=== PATIENT | female | born 1995 | race Caucasian/White ===

== ENCOUNTER 2020-10-04 15:18 | Day surgery (SDCO) | payer OTHER ==
[~2020-10-04] VITALS: Ht 152.4 cm; Wt 66.8 kg
[2020-10-04 16:10] LABS: BASOPHIL 0.5 % (0-2); HCT 39.7 % (37.0-47.0); HGB 13.6 g/dl (12.5-16.0); LYMPHOCYTE 15.8 % (15-48); MCH 30.8 pg (25.0-31.0); MCHC 34.3 g/dL (32.0-36.0); MCV 89.8 fL (78.0-100.0); MONOCYTE 6.7 % (0-12); MPV 10.2 fL (6.0-9.5); NEUTROPHIL 74.7 % (41-80); NRBC 0; PLT 289 K/uL (150-400); RBC 4.42 M/uL (4.20-5.40); RDW 13.2 % (11.5-14.0); WBC 9.1 K/uL (4.0-10.5)
[2020-10-04 16:49] LABS: BILIRUBIN - TOTAL 0.9 mg/dL (0.2-1.0); BUN/CREAT RATIO (CALC) 11.1 RATIO; CREATININE 0.54 mg/dL (0.51-0.95); GLOBULIN (CALCULATION) 4.3 g/dL; POTASSIUM 4.3 mmol/L (3.5-5.1); TOTAL PROTEIN 8.3 g/dL (6.4-8.2)
[2020-10-04 17:25] LABS: BILIRUBIN 1+ mg/dL (NEGATIVE); BLOOD NEGATIVE Ery/uL (NEGATIVE); COLOR YELLOW (YELLOW); GLUCOSE (U) NORMAL (NORMAL); LEUKOCYTES NEGATIVE Leu/uL (NEGATIVE); NITRITE NEGATIVE (NEGATIVE); PROTEIN TRACE (LOW) mg/dL (NEGATIVE); pH 6.5 (5.0-9.0)
[2020-10-04 17:28] LABS: CLARITY SLIGHTLY HAZY (CLEAR)
[2020-10-04] MEDS ORDERED: LOPRESSOR50 MG PO (21:33)
[2020-10-04] MEDS ORDERED: ELAVIL50 MG PO (21:34)
[2020-10-04] MEDS ORDERED: ATARAX25 MG PO (21:35)
[2020-10-04] MEDS ORDERED: CHANTIX1 MG PO (21:36)
[2020-10-04] MEDS ORDERED: NORVASC5 MG PO (21:37)
--- NOTE | 2020-10-05 01:41 | NUR ---
PATIENT ARRIVED TO THE FLOOR IN PAIN AND NAUSEOUS DURING INITIAL ASSESSMENT. THE PATIENT WAS NOT YET BOOKED TO THE FLOOR SO WRITTEN ORDERS FOR ZOFRAN 4MG IV AND DILAUDID 1MG IV WERE GIVEN PER HI LYNNE APRN AT 2039 AND BOTH MEDICATIONS WERE ADMINISTERED TO THE PATIENT AT 2045. THE MEDICATIONS WERE NOT SCANNED INTO THE EMAR TIL 2150. A SUBSEQUENT DOSE WAS ADMINSTERED AT 0102 WHICH WAS 4 HOURS AND 16 MINUTES AFTER THE INITIAL DOSE. THE EMAR DOSE NOT REFLECT THIS HOWEVER, IT REFLECTS A WINDOW OF LESS THAN 4 HOURS WHICH IS INCORRECT. PAPER DOCUMENTATION OF THIS ADMINISTRATION IS WITHIN THE PATIENTS CHART WELL.
[2020-10-05 06:00] LABS: BASOPHIL 0.6 % (0-2); EOSINOPHIL 3.5 % (0-5); HCT 35.7 % (37.0-47.0); LYMPHOCYTE 36.7 % (15-48); MCH 30.8 pg (25.0-31.0); MCHC 33.6 g/dL (32.0-36.0); MCV 91.5 fL (78.0-100.0); MONOCYTE 9.2 % (0-12); MPV 10.6 fL (6.0-9.5); NEUTROPHIL 49.6 % (41-80); NRBC 0; PLT 193 K/uL (150-400); RDW 13.3 % (11.5-14.0); WBC 4.8 K/uL (4.0-10.5)
[2020-10-05 06:05] LABS: ALBUMIN 3.2 g/dL (3.4-5.0); BILIRUBIN - TOTAL 0.8 mg/dL (0.2-1.0); BUN/CREAT RATIO (CALC) 6.8 RATIO; CREATININE 0.59 mg/dL (0.51-0.95); GLOBULIN (CALCULATION) 3.4 g/dL; POTASSIUM 3.9 mmol/L (3.5-5.1); TOTAL PROTEIN 6.6 g/dL (6.4-8.2)
--- NOTE | 2020-10-05 14:06 | NUR ---
MET WITH PT AND SPOUSE. PT IS INDEPENDENT. SHE STATES THAT HER SPOUSE IS SUPPORTIVE. THE [facility] MADE HER AN APPT WITH [facility] [address] AT [facility] PHONE NUMBER IS [phone]. THE APPT IS Saturday12/24/20 @ 7:[address] YASIR HARDING. BOTH PT AND SPOUSE IN AGREEMENT WITH APPT. GAVE PT A WRITTEN COPY OF THE APPT. ADVISED DHIRAJ OCHOA OF APPT.
--- NOTE | 2020-10-05 23:45 | NUR ---
11.20 Patient tempature 100.0, HR 125 when woke up for vital signs. ASSEMBLER DC [employer] Raya Alonso informed. Tylenol 650mg given and patient will be monitored for change in tempature within an hour.
[2020-10-06 05:39] LABS: BASOPHIL 1.2 % (0-2); EOSINOPHIL 3.2 % (0-5); HCT 33.5 % (37.0-47.0); HGB 11.2 g/dl (12.5-16.0); LYMPHOCYTE 34.3 % (15-48); MCH 30.8 pg (25.0-31.0); MCHC 33.4 g/dL (32.0-36.0); MONOCYTE 11.3 % (0-12); MPV 10.3 fL (6.0-9.5); NEUTROPHIL 49.8 % (41-80); NRBC 0; PLT 197 K/uL (150-400); RBC 3.64 M/uL (4.20-5.40); RDW 13.2 % (11.5-14.0); WBC 4.3 K/uL (4.0-10.5)
[2020-10-06 06:12] LABS: ALBUMIN 3.1 g/dL (3.4-5.0); BILIRUBIN - TOTAL 0.6 mg/dL (0.2-1.0); BUN/CREAT RATIO (CALC) 4.8 RATIO; C-REACTIVE PROTEIN 5.4 mg/dL (<=0.90); CREATININE 0.62 mg/dL (0.51-0.95); GLOBULIN (CALCULATION) 3.5 g/dL; POTASSIUM 4.1 mmol/L (3.5-5.1); TOTAL PROTEIN 6.6 g/dL (6.4-8.2)
[2020-10-07] MEDS ORDERED: AZITHROMYCIN250 MG PO (09:23)
[2020-10-08 04:49] LABS: BASOPHIL 0.6 % (0-2); EOSINOPHIL 4.7 % (0-5); HCT 35.9 % (37.0-47.0); HGB 11.7 g/dl (12.5-16.0); MCH 30.3 pg (25.0-31.0); MCHC 32.6 g/dL (32.0-36.0); MONOCYTE 10.8 % (0-12); MPV 10.5 fL (6.0-9.5); NEUTROPHIL 55.7 % (41-80); NRBC 0; PLT 222 K/uL (150-400); RBC 3.86 M/uL (4.20-5.40); RDW 13.4 % (11.5-14.0); WBC 5.1 K/uL (4.0-10.5)
[2020-10-08 05:13] LABS: ALBUMIN 3.2 g/dL (3.4-5.0); BILIRUBIN - TOTAL 0.5 mg/dL (0.2-1.0); CREATININE 0.67 mg/dL (0.51-0.95); GLOBULIN (CALCULATION) 3.9 g/dL; TOTAL PROTEIN 7.1 g/dL (6.4-8.2)
--- NOTE | 2020-10-08 15:13 | NUR ---
PT DAD CAME UP TO NURSES DESK TO SPEAK TO ZABRINA HEARN. FATHER ASKED WHAT THE PLAN FOR HIS DAUGHTER WOULD BE, WHY [facility] HAS NOT TRANSFERRED HER YET, AND IF SHE WAS ABLE TO BE DISCHARGED AND MANANGED AT HOME AND THEN COULD FOLLOW UP WITH HER PRIMARY GI PHYSICIAN. LILIAM HEARN EXPLAINED THAT HER PAIN WAS BEING MANAGED WITH IV DILAUDID AND PHENERGAN AROUND THE CLOCK AND THAT RN WAS NOT SURE HOW WELL HER PAIN COULD BE MANAGED AT HOME. FATHER AGREES AND RETURNS TO ROOM OF [facility]. DR PALACIOS WAS NOTFIED AND WENT INTO ROOM TO SPEAK WITH PATIENT. PATIENT WAS REVIEWED OF OPTIONS AND DECIDED THAT SHE WOULD CONTINUE TO STAY AND WAIT HERE UNTIL [facility] ACCEPTED HER. LILIAM HEARN WENT INTO ROOM AFTER FATHER LEFT AND SPOKE WITH PATIENT REGARDING HER PLAN OF CARE. PT APOLOGIZES FOR FATHERS QUESTIONS. AND STATES THAT SHE WANTS TO STAY HERE AT [facility] UNTIL A ROOM IS AVAILABLE AT [facility]. PT WAS REASSURED THAT FATHERS QUESTIONS WERE NOT A BOTHER THAT THE STAFF WANTED TO CLARIFY SINCE SHE IS THE PATIENT IT IS HER HEALTHCARE CHOICES.
== END 2020-10-08 19:11 | disposition other institution (70) ==
LOC: FER 15:18 → FMS 19:17 → FER 20:00 → FMS 21:35
PROVIDERS: Allergy & Immunology Allergy; Emergency Medicine; Nurse Practitioner; ADMIT Internal Medicine
DX: K86.1 Other chronic pancreatitis (principal); K86.3 Pseudocyst of pancreas; I10 Essential (primary) hypertension; F17.210 Nicotine dependence, cigarettes, uncomplicated; Z79.899 Other long term (current) drug therapy; Z98.890 Other specified postprocedural states; Z20.822 Contact with and (suspected) exposure to COVID-19
CPT/HCPCS: 36415; 71045; 80053; 81003; 82150; 83690; 85025; 86140; 94010; C9113; G0378; J1170; J1650; J2405; J2550; J3480; J7030; J7120; Q9967; U0002

== ENCOUNTER 2020-10-24 13:03 | Emergency (ER) | payer OTHER ==
[~2020-10-24 13:03] MED LIST: ATARAX25 MG PO; AZITHROMYCIN250 MG PO; CHANTIX1 MG PO; ELAVIL50 MG PO; LOPRESSOR50 MG PO; NORVASC5 MG PO
[2020-10-24 18:47] LABS: BASOPHIL 1.4 % (0-2); EOSINOPHIL 6.1 % (0-5); HCT 44.4 % (37.0-47.0); HGB 14.7 g/dl (12.5-16.0); LYMPHOCYTE 37.9 % (15-48); MCH 29.2 pg (25.0-31.0); MCHC 33.1 g/dL (32.0-36.0); MCV 88.3 fL (78.0-100.0); MONOCYTE 6.2 % (0-12); MPV 9.7 fL (6.0-9.5); NEUTROPHIL 47.3 % (41-80); NRBC 0; PLT 400 K/uL (150-400); RBC 5.03 M/uL (4.20-5.40); RDW 13.7 % (11.5-14.0); WBC 7.9 K/uL (4.0-10.5)
[2020-10-24 19:07] LABS: ALBUMIN 3.7 g/dL (3.4-5.0); BILIRUBIN - TOTAL 0.4 mg/dL (0.2-1.0); BUN/CREAT RATIO (CALC) 8.5 RATIO; CREATININE 0.82 mg/dL (0.51-0.95); GLOBULIN (CALCULATION) 5.4 g/dL; POTASSIUM 4.7 mmol/L (3.5-5.1); TOTAL PROTEIN 9.1 g/dL (6.4-8.2)
[2020-10-24 19:32] LABS: LACTIC ACID 1.3 mmol/L (0.4-1.9)
[2020-10-24] MEDS ORDERED: BACTRIM DS TAB1 EACH PO (22:22)
[2020-10-24] MEDS ORDERED: CEPHALEXIN500 M1 PO (22:22)
== END 2020-10-24 22:42 | disposition home or self-care (01) ==
LOC: FER 13:03
PROVIDERS: Emergency Medicine; Emergency Medicine Emergency Medical Services
DX: R10.9 Unspecified abdominal pain (principal); I10 Essential (primary) hypertension; F17.200 Nicotine dependence, unspecified, uncomplicated; Z93.4 Other artificial openings of gastrointestinal tract status
CPT/HCPCS: 36415; 80053; 82150; 83605; 83690; 84145; 85025; J0696; J1885; J2270; J2405; J7030; Q9967

== ENCOUNTER 2021-07-30 17:35 | Emergency (ER) | payer OTHER ==
[~2021-07-30 17:35] MED LIST changes: +BACTRIM DS TAB1 EACH PO; +CEPHALEXIN500 M1 PO
== END 2021-07-30 19:04 | disposition left against medical advice (07) ==
LOC: FER 17:35
DX: Z53.21 Procedure and treatment not carried out due to patient leaving prior to being seen by health care provider (principal)